=== PATIENT | female | born 1960 | race African-American/Black ===

== ENCOUNTER 2021-12-24 09:15 | Emergency (ER) | payer BC, OTHER ==
--- OUTSIDE RECORDS SUMMARY | 2021-12-24 09:18 | XMS REPORT | Continuity of Care Document ---
:1960 Author Organization [facility] t Address [address] [place] [address] Care Team Providers Name Role Phone JOSE MIGUEL HOGAN Attending Clinician Unavailable OPPERJEANNE Attending Clinician Unavailable MD PORTIA E. Attending Clinician Unavailable OPPERJEANNE Admitting Clinician Unavailable MD PORTIA E. Admitting Clinician Unavailable Payers Payer Name Policy Type Policy Number Effective Date Expiration Date S [facility] OS [id number] 2020 00:00:00 POS/PPO/EPO Problems This patient has no known problems. Allergies, Adverse Reactions, Alerts Allergy Allergy Status Severity Reaction(s) Onset Inactive Treating Comm ents Source Name Type Date Date Clinician NO KNOWN Allergy Active [facility] Medications This patient has no known medications. Vital Signs Vital Name Observation Time Observation Value Comments Source HEIGHT 2021-07-19 13:41:00 168 cm WEIGHT 2021-07-19 13:41:00 96.888 kg Procedures This patient has no known procedures. Encounters Start End Encounter Admission Attending Care Care Encounter Source Date/Time Date/Time Type Type Clinicians Facility Department ID 2022-01-10 2022-01-10 Outpatient EL ED[facility], [facility] [id number] [facility] 00:00:00 00:00:00 YOVANNYAMIDIPAFRIEDA 2022-01-10 2022-01-10 Outpatient [facility] [id number] [facility] 00:00:00 00:00:00 2022-01-10 2022-01-10 Outpatient EL EDISON, [facility] [id number] [facility] 00:00:00 00:00:00 YOVANNYAMIDIPAFRIEDA 2022-01-10 2022-01-10 Outpatient EL EDISON, [facility] SLE [id number] [facility] 00:00:00 00:00:00 BHAMIDIPATI 2022-01-10 2022-01-10 Outpatient EL EDISON, [facility] SLE [id number] [facility] 00:00:00 00:00:00 BHAMIDIPATI 2022-01-10 2022-01-10 Outpatient EL EDISON, [facility] SLE [id number] [facility] 00:00:00 00:00:00 BHAMIDIPATI 2021-09-27 2021-09-27 Outpatient OPPERMANN, [facility] 021 [id number] [place] 00:00:00 00:00:00 TAHIRA 650 Method i 2021-09-25 2021-09-25 Outpatient OPPERMANN, [facility] [id number] [place] 00:00:00 00:00:00 TAHIRA 640 Method i 2021-09-25 2021-09-25 Outpatient OPPERMANN, [facility] [id number] [place] 00:00:00 00:00:00 TAHIRA 641 Method i 2021-09-11 2021-09-11 Outpatient OPPERMANN, [facility] 021 [id number] [place] 00:00:00 00:00:00 TAHIRA 413 Method i 2021-09-07 2021-09-07 Outpatient OPPERMANN, [facility] [id number] [place] 00:00:00 00:00:00 TAHIRA 631 Method i 2021-08-29 2021-08-29 Outpatient OPPERMANN, [facility] [id number] [place] 00:00:00 00:00:00 TAHIRA [address] 2021-07-19 2021-07-[address] [facility] [id number] [facility] 00:00:00 00:00:00 2021-07-19 2021-07-[address] [facility] [id number] SLE 00:00:00 00:00:00 Results Test Description Test Time Test Comments Results Result Comments Source SARS-CoV-2 (COVID-19) RNA [Presence] in Respiratory sp ecimen by 2021-09-25 22:49:24 GALDINO with probe detection Test Item Value Reference Range Interpretation Comme nts SARS-CoV-2 (COVID-19) RNA [Presence] in Respiratory Not detected No t-Detected specimen by GALDINO with probe detection (test code = 94504-4) Whether patient is employed in a healthcare setting (test code = 48255-1) Whether the patient has symptoms related to condition of interest (test code = 66105-8) Patient was hospitalized because of this condition (test code = 13480-0) Whether the patient was admitted to intensive care unit (ICU) for condition of interest (test code = 80136-1) Whether patient resides in a congregate care setting (test code = 71978-1) SARS-CoV-2 (COVID-19) RNA [Presence] in Respiratory specimen by GALDINO with probe [id number] 03:20:12 Test Item Value Reference Range Interpretation Comments SARS-CoV-2 (COVID-19) RNA Not detected Not-Detected [Presence] in Respiratory specimen by GALDINO with probe detection (test code = 15580-5) Whether patient is employed in a healthcare setting (test code = 07372-6) Whether the patient has symptoms related to condition of interest (test code = 57909-2) Patient was hospitalized because of this condition (test code = 55006-7) Whether the patient was admitted to intensive care unit (ICU) for condition of interest (test code = 20578-7) Whether patient resides in a congregate care setting (test code = 35494-0) BASIC METABOLIC [id number] 18:27:00 Test Item Value Reference Range Interpretation Comments SODIUM (BEAKER) 137 meq/L 136-145 (test code = 381) POTASSIUM (BEAKER) 4.8 meq/L 3.5-5.1 (test code = 379) CHLORIDE (BEAKER) 104 meq/L 98-107 (test code = 382) CO2 (BEAKER) (test 27 meq/L 22-29 code = 355) BLOOD UREA NITROGEN 32 mg/dL 7-21 H (BEAKER) (test code = 354) CREATININE (BEAKER) 4.28 mg/dL 0.57-1.25 H (test code = 358) GLUCOSE RANDOM 109 mg/dL 70-105 H (BEAKER) (test code = 652) CALCIUM (BEAKER) 9.4 mg/dL 8.4-10.2 (test code = 697) EGFR (BEAKER) (test 13 mL/min/1.73 ESTIMA ROLLY GFR IS code = 1092) sq m NOT ACCURATE CREATININE CLEARANCE IN PREDICTING GLOMERULAR FILTRATION RATE . ESTIMATED GFR I S NOT APPLICABLE FOR DIALYSIS PATIEN TS. Blind Hooker ID - BS
[2021-12-24] MEDS ORDERED: NA CHLORIDE 0.9% 100 ML ONE (09:55)
[2021-12-24] MEDS ORDERED: METHOCARBAMOL 1,000 MG/10 ML VIAL IV ONE (09:55)
[2021-12-24] MEDS ORDERED: CODEINE 30MG/APAP 300MG TAB ONE (09:55)
--- NOTE | 2021-12-24 11:34 | EDPHYS ---
Physician Documentation [facility] Name: Dilia Harrington Age: 61 yrs Sex: Female : 1960 Arrival Date: 12/24/2021 Time: 09:19 Bed 18 Private MD: ED Physician Remington Sow HPI: 12/24 09:50 This 61 yrs old Black Female presents to ER via Ambulatory with complaints of Back Pain.kdr 09:50 The patient presents with pain that is acute, and decreased range of motion, and an kdr injury. The symptoms are located in the Right upper infrascapular pain. Onset: The symptoms/episode began/occurred suddenly, just prior to arrival. The pain does not radiate. Associated signs and symptoms: Pertinent positives: none Pertinent negatives: abdominal pain. The problem was sustained Patient was reaching up to get up and when she felt sudden pain in her back. Modifying factors: The patient symptoms are alleviated by nothing, the patient symptoms are aggravated by movement. Severity of symptoms: At their worst the symptoms were mild, moderate, just prior to arrival, in the emergency department the symptoms are unchanged. The patient has not experienced similar symptoms in the past. The patient has not recently seen a physician. Historical: - Allergies: 09:28 No Known Allergies; jd3 - PMHx: :28 dialsysis; jd3 - Immunization history:: Adult Immunizations up to date, Client reports receiving the 2nd dose of the Covid vaccine. - Social history:: Smoking status: Patient reports the use of cigarette tobacco products, denies chronic smoking, but will smoke occasionally. ROS: 09:50 Constitutional: Negative for fever, chills, and weight loss, Eyes: Negative for injury, kdr pain, redness, and discharge, ENT: Negative for injury, pain, and discharge, Neck: Negative for injury, pain, and swelling, Cardiovascular: Negative for chest pain, palpitations, and edema, Respiratory: Negative for shortness of breath, cough, wheezing, and pleuritic chest pain, Abdomen/GI: Negative for abdominal pain, nausea, vomiting, diarrhea, and constipation, : Negative for injury, bleeding, discharge, and swelling, MS/Extremity: Negative for injury and deformity, Skin: Negative for injury, rash, and discoloration, Neuro: Negative for headache, weakness, numbness, tingling, and seizure activity. Psych: Negative for depression, anxiety, suicide ideation, homicidal ideation, and hallucinations, Allergy/Immunology: Negative for hives, rash, and allergies, Endocrine: Negative for neck swelling, polydipsia, polyuria, polyphagia, and marked weight changes, Hematologic/Lymphatic: Negative for swollen nodes, abnormal bleeding, and unusual bruising. 09:50 Back: Positive for injury or acute deformity, pain at rest, pain with movement, of the right subscapular area. Exam: 09:50 Constitutional: This is a well developed, well nourished patient who is awake, alert, kdr and in no acute distress. Head/Face: Normocephalic, atraumatic. Eyes: Pupils equal round and reactive to light, extra-ocular motions intact. Lids and lashes normal. Conjunctiva and sclera are non-icteric and not injected. Cornea within normal limits. Periorbital areas with no swelling, redness, or edema. 09:50 Back: pain, that is mild, that is moderate, of the right subscapular area, ROM is painful, normal spinal alignment noted, CVA tenderness, is absent, vertebral tenderness, is not appreciated, muscle spasm, is appreciated in the right subscapular area. Vital Signs: 09:28 BP 156 / 100; Pulse 60; Resp 17 S; Temp 97.7(TE); Pulse Ox 100% on R/A; Weight 101.6 kg jd3 (R); Height 5 ft. 6 in. (167.64 cm) (R); Pain 9/10; 10:12 BP 147 / 83; Pulse 57; Resp 16; Pulse Ox 100% ; ll1 11:40 BP 132 / 81; Pulse 58; Resp 16; Pulse Ox 100% ; ll1 09:28 Body Mass Index 36.15 (101.60 kg, 167.64 cm) jd3 MDM: 09:50 Data reviewed: vital signs, nurses notes. Counseling: I had a detailed discussion with kdr the patient and/or guardian regarding: the historical points, exam findings, and any diagnostic results supporting the discharge/admit diagnosis, the need for outpatient follow up. 11:33 Patient medically screened. kdr Administered Medications: 10:11 Drug: Robaxin (methocarbamol) 1 grams Route: IVPB; Infused Over: 1 hrs; Site: right ll1 hand; 11:52 Follow up: Response: No adverse reaction; Pain is decreased; IV Status: Completed ll1 infusion; IV Intake: 100ml 10:11 Drug: Tylenol #3 (300 mg-30 mg) 2 tabs {Note: rass0 , pain 09/09.} Route: PO; ll1 12:10 Follow up: Response: No adverse reaction; Pain is decreased; RASS: Alert and Calm (0) ll1 Disposition Summary: 12/24/21 11:33 Discharge Ordered Location: Home kdr Problem: new kdr Symptoms: have improved kdr Condition: Fair kdr Diagnosis - Right upper back pain, infrascapular kdr Followup: kdr - With: Private Physician - When: 2 - 3 days - Reason: If symptoms return, Further diagnostic work-up, Recheck today's complaints, Continuance of care, Re-evaluation by your physician Discharge Instructions: - Discharge Summary Sheet kdr - Acute Back Pain, Adult kdr Forms: - Medication Reconciliation Form kdr - Thank You Letter kdr - Prescription Opioid Use kdr - Work release form ll1 Prescriptions: - methocarbamol 500 mg Oral tablet - take 2 tablet by ORAL route 4 times per day for 5 days; 40 tablet; Refills: 0, kdr Product Selection Permitted - Tramadol 50 mg Oral Tablet - take 1 tablet by ORAL route every 8 hours as needed; 12 tablet; Refills: 0, kdr Product Selection Permitted - Medrol (Jamison) 4 mg Oral Tablets, Dose Pack - take 1 tablet by ORAL route as directed - follow package instructions; 1 kdr packet; Refills: 0, Product Selection Permitted Signatures: Remington Sow MD MD kdr Baljinder Ahn RN RN jJudah King RN RN ll1
--- NOTE | 2021-12-24 11:34 | ER ---
Nurse's Notes [facility] Name: Dilia Harrington Age: 61 yrs Sex: Female : 1960 Arrival Date: 12/24/2021 Time: 09:19 Bed 18 Private MD: Diagnosis: Right upper back pain, infrascapular Presentation: 12/24 09:27 Chief complaint: Patient states: "I reached up for a carrasco at work and it felt immediate jd3 pain in my right side of my back.". Coronavirus screen: At this time, the client does not indicate any symptoms associated with coronavirus-19. Ebola Screen: No symptoms or risks identified at this time. Initial Sepsis Screen: Does the patient meet any 2 criteria? No. Patient's initial sepsis screen is negative. Does the patient have a suspected source of infection? No. Patient's initial sepsis screen is negative. Risk Assessment: Do you want to hurt yourself or someone else? Patient reports no desire to harm self or others. Onset of symptoms was December 24, 2021. 09:27 Method Of Arrival: Ambulatory jd3 09:27 Acuity: URIEL 4 jd3 Historical: - Allergies: 09:28 No Known Allergies; jd3 - PMHx: 09:28 dialsysis; jd3 - Immunization history:: Adult Immunizations up to date, Client reports receiving the 2nd dose of the Covid vaccine. - Social history:: Smoking status: Patient reports the use of cigarette tobacco products, denies chronic smoking, but will smoke occasionally. Screenin:13 Abuse screen: Denies threats or abuse. Nutritional screening: No deficits noted. ll1 Tuberculosis screening: No symptoms or risk factors identified. Fall Risk IV access (20 points). Total Penn Fall Scale indicates No Risk (0-24 pts). Assessment: 09:30 General: Appears uncomfortable, Behavior is calm, cooperative, appropriate for age. ll1 Pain: Complains of pain in right subscapular area Quality of pain is described as aching, Aggravated by increased activity. 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 Cardiovascular: No deficits noted. Respiratory: No deficits noted. Musculoskeletal: Circulation, motion, and sensation intact. Capillary refill < 3 seconds, Range of motion: intact in all extremities, Reports pain in right subscapular area. Vital Signs: 09:28 BP 156 / 100; Pulse 60; Resp 17 S; Temp 97.7(TE); Pulse Ox 100% on R/A; Weight 101.6 kg jd3 (R); Height 5 ft. 6 in. (167.64 cm) (R); Pain 9/10; 10:12 BP 147 / 83; Pulse 57; Resp 16; Pulse Ox 100% ; ll1 11:40 BP 132 / 81; Pulse 58; Resp 16; Pulse Ox 100% ; ll1 09:28 Body Mass Index 36.15 (101.60 kg, 167.64 cm) jd3 ED Course: 09:19 Patient arrived in ED. ds1 09:28 Triage completed. jd3 09:29 Arm band placed on. jd3 09:30 Judah Tian RN is Primary Nurse. ll1 09:30 Remington Sow MD is Attending Physician. kdr 09:30 Patient placed in an exam room, on a stretcher. ll1 10:05 Inserted saline lock: 22 gauge in right hand, using aseptic technique. ll1 10:13 Patient has correct armband on for positive identification. Bed in low position. Call ll1 light in reach. Side rails up X 1. Pulse ox on. NIBP on. 11:50 No provider procedures requiring assistance completed. IV discontinued, intact, ll1 bleeding controlled, No redness/swelling at site. Pressure dressing applied. Administered Medications: 10:11 Drug: Robaxin (methocarbamol) 1 grams Route: IVPB; Infused Over: 1 hrs; Site: right ll1 hand; 11:52 Follow up: Response: No adverse reaction; Pain is decreased; IV Status: Completed ll1 infusion; IV Intake: 100ml 10:11 Drug: Tylenol #3 (300 mg-30 mg) 2 tabs {Note: rass0 , pain 1010.} Route: PO; ll1 12:10 Follow up: Response: No adverse reaction; Pain is decreased; RASS: Alert and Calm (0) ll1 Intake: 11:52 IV: 100ml; Total: 100ml. ll1 Outcome: 11:33 Discharge ordered by . kdr 11:52 Patient left the ED. bd 11:52 Discharged to home ambulatory. ll1 11:52 Condition: stable 11:52 Discharge instructions given to patient, Instructed on discharge instructions, follow up and referral plans. no drinking with medication, no driving heavy equipment, medication usage, Demonstrated understanding of instructions, follow-up care, medications, Prescriptions given X 3. Signatures: Gaby Ohara Kevin, MD MD kdr Sanford, Demi ds1 Baljinder Ahn RN RN jd3 Judah Tian RN RN ll1 Corrections: (The following items were deleted from the chart) 09:31 09:27 Acuity: URIEL 3 lorena jrachell
[2021-12-24 20:51] VITALS: TEMP 97.7; O2SAT 100
[2021-12-24 20:52] VITALS: BP 147/83
== END 2021-12-24 11:52 | disposition home or self-care (01) ==
LOC: ER 09:15
DX: M54.89 Other dorsalgia (principal)
CPT/HCPCS: 96365; 96366; 99284; J2800

== ENCOUNTER 2023-01-21 09:33 | Day surgery (SDC) | payer OTHER ==
[2023-01-21 10:14] LABS: Absolute Lymphocytes (CBC) 0.8 K/uL (0.7-4.9); Hematocrit 34.7 % (36.0-45.0); Lymphocytes % 11.2 % (15.3-44.8); MCV 95.4 fL (80-100); MPV 8.5 fL (7.6-11.3); RBC Red Blood Cell Count 3.63 M/uL (3.86-4.86)
[2023-01-21] MEDS ORDERED: CEFAZOLIN SODIUM 1 GM/VIAL ONE ×2 (10:22→11:59)
[2023-01-21 10:29] LABS: Potassium 4.5 mmol/L (3.5-5.1)
[2023-01-21] MEDS ORDERED: NA CHLORIDE 0.9% 1,000 ML ONE (10:31)
[2023-01-21] MEDS ORDERED: LIDOCAINE 2% MPF 5 ML VIAL ONE (10:39)
[2023-01-21] MEDS ORDERED: MIDAZOLAM HCL 2 MG/2 ML INJ ONE (10:39)
[2023-01-21] MEDS ORDERED: FENTANYL CITR 100 MCG/2 ML ONE (10:39)
[2023-01-21] MEDS ORDERED: propofoL 200 MG/20 ML VIAL IV ONE (10:39)
[2023-01-21] MEDS ORDERED: NS 0.9% VIAL 10 ML ONE (10:41)
[2023-01-21] MEDS ORDERED: BUPIVACAINE 0.5% PF 10 ML VIAL ONE (10:41)
[2023-01-21] MEDS ORDERED: BACITRACIN OINTMENT 14 GM TUBE TOP ONE (10:43)
[2023-01-21] MEDS ORDERED: LIDOCAINE 1% MPF 30 ML VIAL ONE (10:43)
[2023-01-21] MEDS ORDERED: NA CHLORIDE 0.9% 100 ML ONE (10:44)
[2023-01-21] MEDS ORDERED: DEXTROSE 10%-WATER 500 ML IV ONE ×2 (10:53→12:53)
[2023-01-21] MEDS: HEPARIN 5000 UNIT/ML 1 ML VIAL ONE ×2 (11:45→11:50)
[2023-01-21] MEDS ORDERED: CODEINE 30MG/APAP 300MG TAB PO PRN (12:19)
--- NOTE | 2023-01-21 12:19 | P.OP ---
Date of Service: 01/21/23 Preop diagnosis: End-stage renal disease, malfunctioning right IJ Tesio catheter Postop diagnosis: Same Procedure performed: Removal of right IJ Tesio catheter, insertion of right IJ Tesio catheter, attempted insertion of left IJ Tesio catheter and intraoperative fluoroscopy Surgeon: Lauro Lo MD Column Precaster: None Estimated blood loss: Minimal Specimen: The old Tesio catheter Findings: As above Anesthesia: General Complications: None Drains: None Fluids and blood products: Nonapplicable Disposition: Recovery room Operative note: Patient brought to the OR and placed in supine position. General anesthesia begun. Patient prepped and draped in usual sterile fashion. Marcaine 0.5% infiltrated locally. 18-gauge needle used to access the left IJ vein. Guidewire passed. Position confirmed with fluoroscopy. Counterincision on the left chest made. The device used to tunnel the catheter between the 2 wounds. Seldinger technique used. Tip of the catheter placed in the brachiocephalic vein it could not be advanced any further. There was good blood flow; however, blood return was poor. Therefore the site was abandoned. A guidewire was placed through the old right IJ Tesio catheter. Then the Tesio catheter was removed. Counterincision on the right neck was made. Guidewire was identified and pulled through that wound. Then, Seldinger technique was used and a new catheter was placed under fluoroscopy. The tip of the catheter was in the SVC right atrial junction. The catheter had good flow and return of blood. Catheter was flushed with heparin and packed with heparin. Then all wounds were closed with 3-0 chromic. And 3-0 nylon was used to secure the Tesio catheter to the chest wall. Sterile dressing applied. Patient awakened and taken to recovery room in good general condition. Chest x-ray has been ordered. CC: Dr. Jones's office
--- NOTE | 2023-01-21 12:50 | RAD REPORT ---
EXAM DESCRIPTION: [place] Single View01/21/2023 12:43 pm CLINICAL HISTORY: Status post Tesio catheter placement COMPARISON: No comparisons TECHNIQUE: Portable AP view of the chest. FINDINGS: The lungs are clear. Mild left basilar atelectasis. Right chest wall large bore internal j ugular dialysis catheter in place, with tip terminating in the right atrium. No pneumothorax or effus ion. The cardiomediastinal contours are unremarkable. IMPRESSION: No acute cardiopulmonary process. Satisfactory placement of right internal jugular dialy sis catheter.
--- NOTE | 2023-01-21 13:05 | RAD REPORT ---
EXAM DESCRIPTION: RAD - Fluoroscopy <1 Hour - 01/21/2023 12:55 pm CLINICAL HISTORY: CATH PLACEMENT COMPARISON: None available. FINDINGS: Seven Images were sent to PACS, documenting needle positions during an image guided cathet er placement procedure. No radiologist was available for the procedure, nor will any image interpreta tion he provided. Please refer to the procedural report for additional details. Fluoroscopy time: 1.9 Minutes. IMPRESSION: Documentation of fluoroscopy utilization as above.
[2023-01-21] MEDS: HYDROMORPHONE HCL 1 MG/ML INJ ONE ×2 (13:17→13:26)
[2023-01-21 14:01] VITALS: BP 125/75; TEMP 97; O2SAT 99
[2023-01-21] MEDS ORDERED: CODEINE 30MG/APAP 300MG TAB ONE (14:57)
== END 2023-01-21 15:12 | disposition home or self-care (01) ==
LOC: OR 09:33
PROVIDERS: ATTEND Surgery
PROC: 05HN33Z Insertion of Infusion Device into Left Internal Jugular Vein, Percutaneous Approach (ICD-10-PCS; principal; 2023-01-21 13:00)
DX: T82.41XA Breakdown (mechanical) of vascular dialysis catheter, initial encounter (principal); N18.6 End stage renal disease
CPT/HCPCS: 85025; 80048; 36415; 82947 ×2; 88300; 71045; 76000; 36558; J2704; J1644 ×2; J2001; J2250; J3010; A4216; J1170; J7030; J0690 ×2; C1752

== ENCOUNTER 2025-02-15 19:27 | Emergency (ER) | payer OTHER, SELFPAY ==
[2025-02-15] MEDS ORDERED: GUAIFENESIN/DM 5 ML UCUP ONE ×2 (21:25→23:51)
[2025-02-15] MEDS ORDERED: BENZONATATE 100 MG CAP PO ONE (21:25)
[2025-02-15 21:52] LABS: Absolute Eosinophils 0.1 K/uL (0-0.5); Absolute Lymphocytes (CBC) 1.1 K/uL (0.7-4.9); Absolute Monocytes 0.8 K/uL (0.1-1.3); Absolute Neutrophil 5.2 K/uL (1.8-8.0); Basophils % 0.6 % (0-1.3); Eosinophils % 1.8 % (0-4.4); Hematocrit 32.6 % (36.0-45.0); Hemoglobin 11.2 g/dL (12.0-15.0); Lymphocytes % 14.9 % (15.3-44.8); MCH 33.3 pg (27.0-35.0); MCHC 34.2 g/dL (32.0-36.0); MCV 97.4 fL (80-100); MPV 7.4 fL (7.6-11.3); Neutrophils % 71.7 % (41.7-73.7); Platelets 229 thou/uL (152-406); RBC Red Blood Cell Count 3.35 M/uL (3.86-4.86); Red Cell Distribution Width 12.8 % (12.1-15.2)
--- NOTE | 2025-02-15 21:54 | RAD REPORT ---
EXAMINATION: ONE VIEW CHEST XR CLINICAL INDICATION: CONGESTION TECHNIQUE: Frontal chest projection is submitted. Examination is limited by patient positioning and t echnique. COMPARISON: 02/26/2023 FINDINGS: Moderate bilateral pulmonary opacities are present which may represent pulmonary edema or moderate br onchitis. The heart is upper limit of normal in size. No displaced fractures identified.
[2025-02-15 21:57] LABS: AST/SGOT 16 U/L (15-37); Albumin/Globulin Ratio 0.8 (1.1-1.8); Alkaline Phosphatase 106 U/L (45-117); Anion Gap 10.2 mEq/L (5.0-15.0); BUN Blood Urea Nitrogen 46 mg/dL (7-18); Bicarbonate 25 mEq/L (21-32); Bilirubin Direct 0.2 mg/dL (0-0.2); Bilirubin Indirect, Calculated 0.3 mg/dL (0.2-0.8); Bilirubin Total 0.5 mg/dL (0.2-1.0); Globulin 3.8 g/dL (2.3-3.5); Glomerular Filtration Rate 5 ml/min (=/>90); Glucose Level 96 mg/dL (74-106); Potassium 4.2 mEq/L (3.5-5.1); Protein, Total 6.8 g/dL (6.4-8.2); Sodium Level 135 mEq/L (136-145)
[2025-02-15 22:08] LABS: Influenza A Ag Negative; Influenza B Ag Negative; SARS-CoV-2 Antigen Rapid Res Negative (Negative)
[2025-02-15 22:10] LABS: ALT/SGPT < 14 U/L (13-56)
[2025-02-15 22:17] LABS: Troponin High Sensitivity 69.8 pg/mL (<58.9)
--- NOTE | 2025-02-15 23:25 | ER ---
Nurse's Notes [facility] Name: Dilia Harrington Age: 64 yrs Sex: Female : 1960 Arrival Date: 02/15/2025 Time: 19:27 Bed 10 Private MD: Diagnosis: Cough, Acute upper respiratory infection, acute pharyngitis Presentation: 02/15 19:57 Chief complaint: Patient states: I have had a persistent dry cough for the past 4 days. jb4 Coronavirus screen: At this time, the client does not indicate any symptoms associated with coronavirus-19. Ebola Screen: No symptoms or risks identified at this time. Initial Sepsis Screen: Does the patient meet any 2 criteria? No. Patient's initial sepsis screen is negative. Does the patient have a suspected source of infection? No. Patient's initial sepsis screen is negative. Risk Assessment: Do you want to hurt yourself or someone else? Patient reports no desire to harm self or others. Onset of symptoms was February 11, 2025. Transition of care: patient was not received from another setting of care. 19:57 Method Of Arrival: Ambulatory jb4 19:57 Acuity: URIEL 4 jb4 Triage Assessment: 19:59 General: Appears in no apparent distress. comfortable, Behavior is calm, cooperative, jb4 appropriate for age. Pain: Denies pain. Neuro: Level of Consciousness is awake, alert, obeys commands, Oriented to person, place, time, situation. Cardiovascular: Patient's skin is warm and dry. Respiratory: Airway is patent Respiratory effort is even, unlabored, Respiratory pattern is regular, symmetrical. Derm: Skin is intact, Skin is dry, Skin is normal, Skin temperature is warm. Musculoskeletal: Circulation, motion, and sensation intact. Range of motion: intact in all extremities. Historical: - Allergies: 19:59 No Known Allergies; jb4 - PMHx: 19:59 dialsysis; Diabetes mellitus; jb4 - Immunization history:: Adult Immunizations up to date. - Infectious Disease History:: Denies. - Social history:: Smoking status: Patient reports the use of cigarette tobacco products, smokes one-half pack cigarettes per day. - Family history:: not pertinent. Screenin/19 00:04 [facility] ED Fall Risk Assessment (Adult) History of falling in the last 3 months, vc1 including since admission No falls in past 3 months (0 pts) Confusion or Disorientation No (0 pts) Intoxicated or Sedated No (0 pts) Impaired Gait No (0 pts) Mobility Assist Device Used No (0 pt) Altered Elimination No (0 pt) Score/Fall Risk Level 0 - 2 = Low Risk Oriented to surroundings, Maintained a safe environment, Educated pt \T\ family on fall prevention, incl call for assistance when getting out of bed, Assessed \T\ reinforced patient's understanding of fall precautions. Abuse screen: Denies threats or abuse. Denies injuries from another. Nutritional screening: No deficits noted. Tuberculosis screening: No symptoms or risk factors identified. Assessment: 02/15 21:21 Reassessment: Patient appears in no apparent distress at this time. Patient and/or jb4 family updated on plan of care and expected duration. Pain level reassessed. Patient is alert, oriented x 3, equal unlabored respirations, skin warm/dry/pink. 02/16 00:04 Reassessment: Patient appears in no apparent distress at this time. No changes from vc1 previously documented assessment. Patient and/or family updated on plan of care and expected duration. Pain level reassessed. Patient is alert, oriented x 3, equal unlabored respirations, skin warm/dry/pink. Patient states feeling better. Patient states symptoms have improved. Vital Signs: 02/15 19:57 BP 131 / 74; Pulse 74; Resp 18; Temp 98.8(O); Pulse Ox 99% on R/A; Weight 87.54 kg (R); jb4 Height 5 ft. 6 in. (R); Pain 0/10; 02/16 00:04 BP 127 / 79; Pulse 69; Resp 17 S; Temp 98.4(O); Pulse Ox 99% on R/A; vc1 02/15 19:57 Body Mass Index 31.15 (87.54 kg, 167.64 cm) jb4 02/15 19:57 Pain Scale: Adult jb4 [place] Coma Score: 20:35 Eye Response: spontaneous(4). Motor Response: obeys commands(6). Verbal Response: sp4 oriented(5). Total: 15. ED Course: 02/15 19:29 Patient arrived in ED. jj6 19:56 Lexx Powell, RN is Primary Nurse. jb4 19:59 Triage completed. jb4 19:59 Arm band placed on right wrist. jb4 20:10 Patient has correct armband on for positive identification. Bed in low position. Call vc1 light in reach. Side rails up X 1. 20:10 Client placed on continuous cardiac and pulse oximetry monitoring. NIBP monitoring vc1 applied. 20:17 Stu Ferreira MD is Attending Physician. sp4 21:19 Inserted saline lock: 20 gauge in left antecubital area, using aseptic technique. Blood jb4 collected. 21:20 COVID-19 Ag + Flu A+B Ag Sent. jb4 21:21 Basic Metabolic Panel Sent. jb4 21:21 CBC with Diff Sent. jb4 21:21 LFT's Sent. jb4 21:21 Troponin HS Sent. jb4 21:29 XRAY Chest (1 view) In Process Unspecified. EDMS 23:23 Sadie Jones MD is Referral Physician. sp4 02/16 00:05 No provider procedures requiring assistance completed. IV discontinued, intact, vc1 bleeding controlled, No redness/swelling at site. Pressure dressing applied. Administered Medications: 02/15 21:28 Drug: Dextromethorphan-Guaifenesin PO Liquid 10 mg-100 mg/5 mL 20 ml PO once Route: PO; jb4 02/16 00:06 Follow up: Response: No adverse reaction vc1 02/15 21:28 Drug: Tessalon Perle PO 200 mg PO once Route: PO; jb4 02/16 00:06 Follow up: Response: No adverse reaction vc1 00:05 Drug: AZITHromycin PO 500 mg PO once Route: PO; vc1 00:06 Follow up: Response: No adverse reaction; Medication administered at discharge. vc1 00:05 Drug: Dextromethorphan-Guaifenesin PO Liquid 10 mg-100 mg/5 mL 20 ml PO once Route: PO; vc1 00:05 Follow up: Response: No adverse reaction; Medication administered at discharge. vc1 Medication: 00:04 VIS not applicable for this client. vc1 Outcome: 02/15 23:24 Discharge ordered by . sp4 02/16 00:05 Discharged to home ambulatory, vc1 Condition: stable Discharge instructions given to patient, Instructed on discharge instructions, follow up and referral plans. medication usage, Demonstrated understanding of instructions, follow-up care, medications, Prescriptions given X 3, 00:06 Patient left the ED. vc1 Signatures: Dispatcher [employer] EDLexx Madsen RN RN jb4 Ifeoma [id number] Trang Ghosh RN RN vc1 Stu Ferreira MD MD sp4
--- NOTE | 2025-02-15 23:25 | EDPHYS ---
Physician Documentation [facility] Name: Dilia Harrington Age: 64 yrs Sex: Female : 1960 Arrival Date: 02/15/2025 Time: 19:27 Bed 10 Private MD: ED Physician Stu Ferreira HPI: 02/15 20:17 This 64 yrs old Black Female presents to ER via Ambulatory with complaints of Cough. sp4 02/16 20:35 64-year-old black female presents with acute complaint of cough . History of end-stage sp4 renal disease patient is on hemodialysis.. Historical: - Allergies: 02/15 19:59 No Known Allergies; jb4 - PMHx: 19:59 dialsysis; Diabetes mellitus; jb4 - Immunization history:: Adult Immunizations up to date. - Infectious Disease History:: Denies. - Social history:: Smoking status: Patient reports the use of cigarette tobacco products, smokes one-half pack cigarettes per day. - Family history:: not pertinent. ROS: 02/16 20:35 Constitutional: Negative for fever, chills, and weight loss, positive cough and dyspnea sp4 All other systems are negative, Exam: 20:35 Constitutional: This is a well developed, well nourished patient who is awake, alert, sp4 and in no acute distress. Head/Face: Normocephalic, atraumatic. Eyes: Pupils equal round and reactive to light, extra-ocular motions intact. Lids and lashes normal. Conjunctiva and sclera are not injected. Cornea within normal limits. Periorbital areas with no swelling, redness, or edema. ENT: Nares patent. No nasal discharge, no septal abnormalities noted. Tympanic membranes are normal and external auditory canals are clear. Oropharynx with no redness, swelling, or masses, exudates, or evidence of obstruction, uvula midline. Mucous membranes moist. Neck: Trachea midline, no thyromegaly or masses palpated, and no cervical lymphadenopathy. Supple, full range of motion without nuchal rigidity, or vertebral point tenderness. Chest/axilla: Normal chest wall appearance and motion. Nontender with no deformity. No lesions are appreciated. Cardiovascular: Regular rate and rhythm with a normal S1 and S2. No gallops, murmurs, or rubs. Normal PMI, no JVD. No pulse deficits. Respiratory: Lungs have equal breath sounds bilaterally, clear to auscultation and percussion. No rales, rhonchi or wheezes noted. No increased work of breathing, no retractions or nasal flaring. Abdomen/GI: Soft, with normal bowel sounds. No distension or tympany. No guarding or rebound. No evidence of tenderness throughout. Back: No spinal tenderness. No costovertebral tenderness. Skin: Warm, dry with normal turgor. Normal color with no rashes, no lesions, and no evidence of cellulitis. MS/ Extremity: Pulses equal, no cyanosis. Neurovascular intact. Full, normal range of motion. Neuro: Awake and alert, GCS 15, oriented to person, place, time, and situation. Cranial nerves II-XII grossly intact. Motor strength 5/5 in all extremities. Sensory grossly intact. Psych: Awake, alert, with orientation to person, place and time. Behavior, mood, and affect are within normal limits Vital Signs: 02/15 19:57 BP 131 / 74; Pulse 74; Resp 18; Temp 98.8(O); Pulse Ox 99% on R/A; Weight 87.54 kg (R); jb4 Height 5 ft. 6 in. (R); Pain 0/10; 02/16 00:04 BP 127 / 79; Pulse 69; Resp 17 S; Temp 98.4(O); Pulse Ox 99% on R/A; vc1 02/15 19:57 Body Mass Index 31.15 (87.54 kg, 167.64 cm) jb4 02/15 19:57 Pain Scale: Adult jb4 [place] Coma Score: 20:35 Eye Response: spontaneous(4). Motor Response: obeys commands(6). Verbal Response: sp4 oriented(5). Total: 15. MDM: 02/15 20:25 Medical Screening Exam initiated sp4 02/16 20:35 Differential Diagnosis: Bronchitis Influenza Upper Respiratory Infection Sinusitis sp4 Pharyngitis Otitis Media Allergic Rhinitis. Data reviewed: vital signs, nurses notes, old medical records, lab test result(s), radiologic studies, plain films. Consideration of Admission/Observation Escalation of care including admission/observation considered. ED course: EXAMINATION: ONE VIEW CHEST XR CLINICAL INDICATION: CONGESTION TECHNIQUE: Frontal chest projection is submitted. Examination is limited by patient positioning and technique. COMPARISON: 02/26/2023 FINDINGS: Moderate bilateral pulmonary opacities are present which may represent pulmonary edema or moderate bronchitis. The heart is upper limit of normal in size. No displaced fractures identified. . 20:38 ED course: Troponin close to baseline today. Workup otherwise unremarkable. We will sp4 discharge patient home with Zithromax and recommend to obtain hemodialysis tomorrow as scheduled.. 02/15 20:40 Order name: Basic Metabolic Panel; Complete Time: 23:16 sp4 02/15 20:40 Order name: CBC with Diff; Complete Time: 23:16 sp4 02/15 20:40 Order name: LFT's; Complete Time: 23:16 sp4 02/15 20:40 Order name: Troponin HS; Complete Time: 23:16 sp4 02/15 20:41 Order name: COVID-19 Ag + Flu A+B Ag; Complete Time: 23:16 4 02/15 20:40 Order name: XRAY Chest (1 view); Complete Time: 23:16 sp4 02/15 20:40 Order name: IV Saline Lock; Complete Time: 21:20 sp4 02/15 20:40 Order name: Labs collected and sent; Complete Time: 21:20 sp4 Administered Medications: 02/15 21:28 Drug: Dextromethorphan-Guaifenesin PO Liquid 10 mg-100 mg/5 mL 20 ml PO once Route: PO; jb4 02/16 00:06 Follow up: Response: No adverse reaction vc1 02/15 21:28 Drug: Tessalon Perle PO 200 mg PO once Route: PO; jb4 02/16 00:06 Follow up: Response: No adverse reaction vc1 00:05 Drug: AZITHromycin PO 500 mg PO once Route: PO; vc1 00:06 Follow up: Response: No adverse reaction; Medication administered at discharge. vc1 00:05 Drug: Dextromethorphan-Guaifenesin PO Liquid 10 mg-100 mg/5 mL 20 ml PO once Route: PO; vc1 00:05 Follow up: Response: No adverse reaction; Medication administered at discharge. vc1 Disposition: 20:38 Chart complete. sp4 Disposition Summary: 02/15/25 23:24 Discharge Ordered Notes: Location: Home sp4 Problem: new sp4 Symptoms: have improved sp4 Condition: Stable sp4 Diagnosis - Cough, Acute upper respiratory infection, acute pharyngitis sp4 Followup: sp4 - With: Sadie Jones MD - When: 7 - 10 days - Reason: Recheck today's complaints Discharge Instructions: - Discharge Summary Sheet sp4 - Cough, Adult, [id number] sp4 Forms: - Patient Portal Instructions sp4 Prescriptions: - dextromethorphan-guaifenesin 20-400 mg Oral tablet - take 1 tablet ORAL route every 6 hours PRN cough; 60 tablet; Refills: 0, sp4 Product Selection Permitted - Tessalon Perles 100 mg Oral capsule - take 1 capsule ORAL route every 6 hours As needed PRN cough; 60 capsule; sp4 Refills: 0, Product Selection Permitted - Zithromax Z-Jamison 250 mg Oral Tablet - take 1 tablet ORAL route as directed for 5 days Day 1 - take two (2) tablets sp4 one time. Day 2, 3, 4 , 5 take one (1) tablet once daily.; 6 tablet; Refills: 0, Product Selection Permitted Signatures: Dispatcher [employer] EDMS Lexx Powell RN RN jb4 Trang Ghosh RN RN vc1 Stu Ferreira MD MD sp4 Corrections: (The following items were deleted from the chart) 02/15 20:41 20:41 BASIC METABOLIC PANEL+C.LAB.BRZ ordered. EDMS EDMS 20:41 20:41 CBC+H.LAB.BRZ ordered. EDMS EDMS 20:41 20:41 HEPATIC FUNCTION+C.LAB.BRZ ordered. EDMS EDMS 20:41 20:41 Troponin High Sensitivity+C.LAB.BRZ ordered. EDMS EDMS 20:41 20:41 Chest Single View+RAD.RAD.BRZ ordered. EDMS EDMS
[2025-02-15] MEDS ORDERED: AZITHROMYCIN 250 MG TAB ONE (23:51)
[2025-02-16 07:34] VITALS: O2SAT 99
[2025-02-16 07:35] VITALS: BP 127/79; TEMP 98.4
== END 2025-02-16 00:06 | disposition home or self-care (01) ==
LOC: ER 19:27
DX: J06.9 Acute upper respiratory infection, unspecified (principal); J02.9 Acute pharyngitis, unspecified; E11.22 Type 2 diabetes mellitus with diabetic chronic kidney disease; N18.6 End stage renal disease; Z99.2 Dependence on renal dialysis; F17.210 Nicotine dependence, cigarettes, uncomplicated; Z11.52 Encounter for screening for COVID-19
CPT/HCPCS: 36415; 71045; 80048; 80076; 84484; 85025; 87428; 99284